=== PATIENT | female | born 1960 | race Hispanic/Latino ===

== ENCOUNTER 2020-06-29 19:05 | Emergency (ER) | payer SELFPAY ==
[~2020-06-29] VITALS: Ht 157.5 cm; Wt 68.2 kg
--- NOTE | 2020-06-29 21:05 | REPVR ---
PROCEDURE INFORMATION: Exam: XR Left Hand Exam date and time: 06/29/2020 8:24 PM Age: 60 years old Clinical indication: Pain; Hand; Left; Additional info: Pain over 5th metacarpal TECHNIQUE: Imaging protocol: XR Left hand. Views: 3 or more views. COMPARISON: No relevant prior studies available. FINDINGS: Bones/joints: There is no fracture or dislocation of the left hand. 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 No bony destructive changes are present. Soft tissues: Unremarkable. IMPRESSION: No fracture or dislocation of the left hand. Electronically signed by: Ronaldo Villavicencio On 06/29/2020 21:05:54 PM
--- NOTE | 2020-06-29 21:05 | REPVR ---
PROCEDURE INFORMATION: Exam: XR Left Humerus Exam date and time: 06/29/2020 8:24 PM Age: 60 years old Clinical indication: Pain and injury or trauma; Fall; Sprain or strain; Arm, upper; Left; Upper arm; Injury date: Today; Additional info: Pain and swelling after fall TECHNIQUE: Imaging protocol: XR Left humerus. Views: 2 or more views. COMPARISON: No relevant prior studies available. FINDINGS: Bones/joints: There is no fracture or dislocation of the left humerus. The left glenohumeral alignment is maintained. No widening of the left acromioclavicular joint space or left coracoclavicular space is noted to suggest a left acromioclavicular separation injury. There is mild osteoarthritis of the left acromioclavicular joint. The alignment of the left elbow joint is also maintained. No left elbow joint effusion is seen. There is a spur arising from the olecranon at the insertion of the triceps tendon, which is compatible with a left triceps enthesopathy. Soft tissues: Unremarkable. IMPRESSION: No fracture or dislocation of the left humerus. Electronically signed by: Ronaldo Villavicencio On 06/29/2020 21:06:00 PM
[2020-06-29] MEDS ORDERED: ACETAMINOPHEN 500 MG TAB PO ONE (21:10)
[2020-06-29] MEDS ORDERED: NAPROXEN 250 MG TAB PO ONE (21:10)
[2020-06-29] MEDS ORDERED: LIDOCAINE 4% CREAM 5GM (LMX4) TOP ONE (21:10)
[2020-06-29] MEDS ORDERED: NAPR-837 PO (21:17)
[2020-06-29] MEDS ORDERED: ANEC4CRE3 TOP (21:17)
[2020-06-29 21:53] VITALS: BP 148/68
== END 2020-06-29 21:54 | disposition home or self-care (01) ==
LOC: M ED 19:05
DX: M25.512 Pain in left shoulder (principal); W19.XXXA Unspecified fall, initial encounter; Y92.410 Unspecified street and highway as the place of occurrence of the external cause; Y93.9 Activity, unspecified; Y99.9 Unspecified external cause status